=== PATIENT | male | born 1965 | race Caucasian/White ===

== ENCOUNTER 2016-09-08 19:17 | Emergency (ER) | payer MEDICAID ==
[~2016-09-08] VITALS: Ht 188 cm; Wt 66.1 kg
[~2016-09-08 19:17] MED LIST: MORP10CA10 PO; OXYC5CAP4 PO
[2016-09-08 19:25] VITALS: BP 118/71
[2016-09-08] MEDS ORDERED: DIPH,PERTUSS(ACELL),TET VAC/PF 0.5 ML IM-VACC ONE ×2 (20:00→20:02)
== END 2016-09-08 20:32 | disposition home or self-care (01) ==
LOC: ED 20:26
DX: S60.571A Other superficial bite of hand of right hand, initial encounter (principal); I10 Essential (primary) hypertension
CPT/HCPCS: 90471; 90715